=== PATIENT | female | born 1990 | race Hispanic/Latino ===

== ENCOUNTER 2019-09-28 20:19 | Emergency (ER) | payer BC, MEDICAID ==
--- NOTE | 2019-09-28 21:20 | XRay Report ---
LEFT ANKLE 3 VIEWS INDICATION / CLINICAL INFORMATION: Injury with left ankle pain. COMPARISON: None available. FINDINGS: BONES / JOINT(S): There is an acute, oblique, mildly displaced fracture of the distal fibular metaphy sis. I do not identify a tibial fracture or dislocation. SOFT TISSUES: There is moderate soft tissue swelling overlying the lateral malleolus. ADDITIONAL FINDINGS: None. IMPRESSION: Acute fracture of the distal fibular metaphysis. Signer Name: Darrell Cobos MD Signed: 09/28/2019 9:16 PM Workstation Name: [id number]
[2019-09-28] MEDS ORDERED: HYDROcodone/ACETAMINOPHEN 7.5-325MG TAB PO ONE (22:35)
--- NOTE | 2019-09-28 22:37 | Emergency Department Report ---
ED Lower Extremity HPI - General Chief Complaint: Extremity Injury, Lower Stated Complaint: LEFT ANKLE INJURY Time Seen by Provider: 09/28/19 22:26 Source: patient Mode of arrival: Wheelchair Limitations: Physical Limitation - History of Present Illness Initial Comments: 29-year-old female presents to the emergency room complaining of left ankle pain. Patient states that she was walking down a hill when she fell and injured her left ankle. Patient denies any past medical history currently takes no medications on a daily basis and is allergic to penicillin. She reports this happened just prior to arrival. MD Complaint: ankle injury (left) -: This evening Injury: Ankle: Left Type of Injury: inversion Place: street/outdoors Severity scale (0 -10): 10 Improves With: nothing Worsens With: weight bearing, movement, palpation Context: fall Associated Symptoms: swelling, numbness, unable to bear weight Treatments Prior to Arrival: cold therapy - Related Data Previous Rx's Medication Instructions Recorded Last Taken Type HYDROcodone/APAP 7.5-325 [[place] 1 each PO Q8HR PRN #12 tablet 09/28/19 Unknown Rx 7.5/325] Ibuprofen [Motrin 600 MG tab] 600 mg PO Q8H PRN #30 tablet 09/28/19 Unknown Rx Allergies Allergy/AdvReac Type Severity Reaction Status Date / Time Penicillins Allergy Unknown Unverified 06/04/15 20:09 ED Review of Systems ROS: Stated complaint: LEFT ANKLE INJURY Other details as noted in HPI Comment: All other systems reviewed and negative ED Past Medical Hx - Past Medical History Previous Medical History?: No Hx Hypertension: No Hx Diabetes: No Hx Deep Vein Thrombosis: No Hx Renal Disease: No Hx Sickle Cell Disease: No Hx Seizures: No Hx Asthma: No Hx HIV: No - Surgical History Past Surgical History?: No - Social History Smoking Status: Current Every Day Smoker Substance Use Type: None - Medications Home Medications: Home Medications Medication Instructions Recorded Confirmed Last Taken Type HYDROcodone/APAP 7.5-325 [[place] 1 each PO Q8HR PRN #12 tablet 09/28/19 Unknown Rx 7.5/325] Ibuprofen [Motrin 600 MG tab] 600 mg PO Q8H PRN #30 tablet 09/28/19 Unknown Rx ED Physical Exam - General Limitations: Physical Limitation General appearance: alert, in distress - Head Head exam: Present: atraumatic, normocephalic - Eye Eye exam: Present: normal appearance - ENT ENT exam: Present: mucous membranes moist - Expanded Lower Extremity Exam Left Hip exam: Present: normal inspection Upper Leg exam: Present: normal inspection Knee exam: Present: normal inspection, full ROM Lower Leg exam: Present: normal inspection, full ROM Ankle exam: Present: tenderness, swelling, erythema Foot/Toe exam: Present: full ROM, tenderness, swelling Neuro vascular tendon exam: Present: no vascular compromise Gait: Positive: not tested/not observed - Back Exam Back exam: Present: normal inspection - Neurological Exam Neurological exam: Present: alert, oriented X3 - Psychiatric Psychiatric exam: Present: normal affect, normal mood - Skin Skin exam: Present: warm, dry, intact, normal color. Absent: rash ED Lower Extremity MDM - Radiology Data Radiology results: report reviewed Referring Physician:GARRY DESAIPatient Name:SHON BOGGSPatient ID:[id number] of :[id number]:FemaleAccession:[id number] Date:[id number] Status:Finalized Findings [address] [address] XRay Report Signed Patient: SHON BOGGS MR#: [id number] : 1990 Acct:[id number] Age/Sex: 29 / F ADM Date: 09/28/19 Loc: ED Attending Dr: Ordering Physician: GARRY DESAI MD Date of Service: 09/28/19 Procedure(s): XR ankle 3+V LT Accession Number(s): [id number] cc: GARRY DESAI MD Fluoro Time In Minutes: LEFT ANKLE 3 VIEWS INDICATION / CLINICAL INFORMATION: Injury with left ankle pain. COMPARISON: None available. FINDINGS: BONES / JOINT(S): There is an acute, oblique, mildly displaced fracture of the distal fibular metaphysis. I do not identify a tibial fracture or dislocation. SOFT TISSUES: There is moderate soft tissue swelling overlying the lateral malleolus. ADDITIONAL FINDINGS: None. IMPRESSION: Acute fracture of the distal fibular metaphysis. Signer Name: Mark Cobos MD Signed: 09/28/2019 9:16 PM Workstation Name: [id number] Transcribed By: RT Dictated By: Mark Cobos MD Electronically Authenticated By: Mark Cobos MD Signed Date/Time: 09/28/192115 DD/ 13 TD/TT: - Medical Decision Making 29-year-old female presents to the emergency room complaining of left ankle pain. Patient states that she was walking down a hill when she fell and injured her left ankle. Patient denies any past medical history currently takes no medications on a daily basis and is allergic to penicillin. She reports this happened just prior to arrival. Left distal fibular meta physis fracture patient is given [place] for pain. Patient be discharged home on [place] and ibuprofen referral to orthopedic provider. Patient is given crutches to have no weightbearing on the left ankle. Critical care attestation.: If time is entered above; I have spent that time in minutes in the direct care of this critically ill patient, excluding procedure time. ED Disposition Clinical Impression: Fracture of distal end of fibula Disposition: - TO HOME OR SELFCARE Is pt being admited?: No Does the pt Need Aspirin: No Condition: Stable Instructions: Ankle Fracture (ED) Additional Instructions: Fractured ankle. Take pain medication as needed use crutches to help ambulate and follow-up with an quality specialist. Prescriptions: Ibuprofen [Motrin 600 MG tab] 600 mg PO Q8H PRN #30 tablet PRN Reason: Pain HYDROcodone/APAP 7.5-325 [[place] 7.5/325] 1 each PO Q8HR PRN #12 tablet PRN Reason: Pain Referrals: MARK SARAH MD [Staff Physician] - 3-5 Days VENUS JORGE MD [Staff Physician] - 3-5 Days
== END 2019-09-28 23:30 | disposition home or self-care (01) ==
LOC: ED 20:19
DX: S89.391A Other physeal fracture of lower end of right fibula, initial encounter for closed fracture (principal); F17.200 Nicotine dependence, unspecified, uncomplicated; Z88.0 Allergy status to penicillin; W17.89XA Other fall from one level to another, initial encounter; Y93.89 Activity, other specified; Y92.89 Other specified places as the place of occurrence of the external cause; Y99.8 Other external cause status